=== PATIENT | male | born 1980 | race Caucasian/White ===

== ENCOUNTER 2016-11-09 22:19 | Emergency (ER) | payer OTHER ==
[2016-11-09 22:27] VITALS: RESP 18; TEMP 97.9
--- NOTE | 2016-11-09 22:54 | CPEKG ---
Heart Rate: 77 RR Interval: 779 P-R Interval: 160 QRSD Interval: 98 QT Interval: 384 QTC Interval: 435 P [place]: 36 QRS [place]: -2 T Wave [place]: 2 EKG Severity - NORMAL ECG - EKG Impression: SINUS RHYTHM Electronically Signed By: Marcell Irvin 10-Nov-2016 06:56:00
--- NOTE | 2016-11-09 23:32 | EDPHY ---
HPI/HX/ROS/PE/MDM Narrative: Chief complaint: Palpitations, belching, lightheadedness HPI: 36-year-old male with extensive history of anxiety who is currently weaning off the propranolol who was on the elliptical to gym earlier this evening when he began feeling increased palpitations, his head became thick. Any had increased fatigue. He continued his workup is symptoms persist so he stopped. The symptoms ended shortly after he got off and began to rest. He is also complaining of having episodes for the last week or so of feeling a increased pressure sensation in his upper abdomen with feeling like his heart skips a beat which is then followed by belching which relieves the symptoms. These each last up to 5-10 seconds at most. He has not have any exertional chest pain or dyspnea problem. No fevers or chills. He last took for panel wall couple days ago. He has not exercised since being off the propranolol which she has been on for several weeks. No recent illness. No fevers or chills. No nausea or vomiting. Does not smoke. Drinks rare alcohol, uses no recreational drugs. Does not have a family history of coronary artery disease. No recent travel. ROS: 10 point Review of Systems is negative except as noted in the HPI. Physical exam: Gen: Awake, Alert, no distress, anxious appearing HEENT: Nose: no rhinorrhea Eyes: PERRLA, EOMI Mouth: Moist mucosa Neck: Supple, no JVD Chest: nontender, lungs clear to auscultation Heart: S1, S2 normal, no murmur Abd: Soft, non-tender, no guarding Back: no CVA tenderness, no midline tenderness Ext: no edema, non-tender Skin: no rash Neuro: CN II-XII intact, Sensation grossly intact, Strength 5/5 in bilateral upper and lower extremities ED Course: EC sinus rhythm, rate of 77, normal axis, normal intervals, no acute ST or T-wave changes. Impression: Normal ECG. CBC, BMP, troponin are normal. Patient has had no further episodes in the emergency department. Symptoms are consistent likely with gastrointestinal and anxiety reaction. No evidence of acute coronary syndrome at this time. Will discharge with follow-up with PCP. - Data Points Laboratory Results: Laboratory Results 11/09/16 23:29 11/09/16 23:29 11/09/16 23:29 WBC 5.10 10^3/uL (3.80-9.50) RBC 5.19 10^6/uL (4.40-6.38) Hgb 17.1 g/dL (13.7-17.5) Hct 47.6 % (40.0-51.0) MCV 91.7 fL (81.5-99.8) MCH 32.9 pg (27.9-34.1) MCHC 35.9 g/dL (32.4-36.7) RDW 12.7 % (11.5-15.2) Plt Count 225 10^3/uL (150-400) MPV 10.8 fL (8.7-11.7) Neut % (Auto) 54.5 % (39.3-74.2) Lymph % (Auto) 34.5 % (15.0-45.0) [place] % (Auto) 9.6 % (4.5-13.0) Eos % (Auto) 0.8 % (0.6-7.6) Baso % (Auto) 0.4 % (0.3-1.7) Nucleat RBC Rel Count 0.0 % (0.0-0.2) Absolute Neuts (auto) 2.78 10^3/uL (1.70-6.50) Absolute Lymphs (auto) 1.76 10^3/uL (1.00-3.00) Absolute Monos (auto) 0.49 10^3/uL (0.30-0.80) Absolute Eos (auto) 0.04 10^3/uL (0.03-0.40) Absolute Basos (auto) 0.02 10^3/uL (0.02-0.10) Absolute Nucleated RBC 0.00 10^3/uL (0-0.01) Immature Gran % 0.2 % (0.0-1.1) Immature Gran # 0.01 10^3/uL (0.00-0.10) Sodium 146 H mEq/L (134-144) Potassium 3.5 mEq/L (3.5-5.2) Chloride 109 mEq/L (97-110) Carbon Dioxide 23 mEq/l (22-31) Anion Gap 14 mEq/L (8-16) BUN 7 mg/dL (7-23) Creatinine 1.2 mg/dL (0.7-1.3) Estimated GFR > 60 Glucose 96 mg/dL (70-100) Calcium 9.4 mg/dL (8.5-10.4) Troponin I < 0.012 ng/mL (0-0.034) General Time Seen by Provider: 11/09/16 22:56 Initial Vital Signs: Initial Vital Signs Temperature (C) 36.6 C 11/09/16 22:25 Heart Rate 99 11/09/16 22:25 Respiratory Rate 18 11/09/16 22:25 Blood Pressure 158/98 H 11/09/16 22:25 O2 Sat (%) 97 11/09/16 22:25 O2 Delivery Mode Room Air Allergies/Adverse Reactions: Cephalosporins Allergy (Verified 11/09/16 22:24) Penicillins Allergy (Verified 11/09/16 22:24) propranolol Allergy (Verified 11/09/16 22:24) Sulfa (Sulfonamide Antibiotics) Allergy (Verified 11/09/16 22:24) Home Medications: Medication Instructions Recorded Omeprazole 10/23/16 Departure - Departure Disposition: Home, Routine, Self-Care Clinical Impression: Palpitations Condition: Good Instructions: Palpitations (ED) Additional Instructions: Follow up with your primary care physician in 2-3 days for re-evaluation. Return to the emergency depart for any concerns.
[2016-11-09 23:49] LABS: % IMMATURE GRANULYOCYTES 0.2 % (0.0-1.1); ABSOLUTE IMMATURE GRANULOCYTES 0.01 10^3/uL (0.00-0.10); ADD DIFF? NO; ADD MORPH? NO; ADD SCAN? NO; ATYPICAL LYMPHOCYTE FLAG 0 (0-99); FRAGMENT RBC FLAG 0 (0-99); HEMATOCRIT 47.6 % (40.0-51.0); HEMOGLOBIN 17.1 g/dL (13.7-17.5); LEFT SHIFT FLG 0 (0-99); LIPEMIA HEMOLYSIS FLAG 90 (0-99); MEAN CELL HEMOGLOBIN 32.9 pg (27.9-34.1); MEAN CELL HEMOGLOBIN CONCENTR. 35.9 g/dL (32.4-36.7); MEAN CELL VOLUME 91.7 fL (81.5-99.8); MEAN PLATELET VOLUME 10.8 fL (8.7-11.7); PLATELET CLUMPS FLAG 10 (0-99); PLATELET COUNT 225 10^3/uL (150-400); RED BLOOD CELL COUNT 5.19 10^6/uL (4.40-6.38); RED CELL DISTRIBUTION WIDTH 12.7 % (11.5-15.2)
[2016-11-10 00:08] LABS: ANION GAP 14 mEq/L (8-16); CALCIUM 9.4 mg/dL (8.5-10.4); CARBON DIOXIDE 23 mEq/l (22-31); CHLORIDE 109 mEq/L (97-110); CREATININE 1.2 mg/dL (0.7-1.3); GLOMERULAR FILTRATION RATE > 60; GLUCOSE 96 mg/dL (70-100); POTASSIUM 3.5 mEq/L (3.5-5.2); SODIUM 146 mEq/L (134-144)
[2016-11-10 00:20] LABS: TROPONIN I < 0.012 ng/mL (0-0.034)
[2016-11-10 00:59] VITALS: BP 131/85; PULSE 90; O2SAT 98
== END 2016-11-10 00:58 | disposition home or self-care (01) ==
DX: R00.2 Palpitations (principal)

== ENCOUNTER 2016-11-19 15:21 | Emergency (ER) | payer OTHER ==
--- NOTE | 2016-11-19 15:49 | CPEKG ---
Heart Rate: 87 RR Interval: 690 P-R Interval: 156 QRSD Interval: 100 QT Interval: 384 QTC Interval: 462 P [place]: 41 QRS [place]: -11 T Wave [place]: 9 EKG Severity - NORMAL ECG - EKG Impression: SINUS RHYTHM Electronically Signed By: Genaro Jin 19-Nov-2016 19:46:24
[2016-11-19] MEDS ORDERED: NS 1,000 ML IV ONE (15:59)
--- NOTE | 2016-11-19 16:03 | EDPHY ---
H & P Stated Complaint: [place] like he was going to pass out while in [facility]. Time Seen by Provider: 11/19/16 15:55 - Personal History Current Tetanus Diphtheria and Acellular Pertussis (TDAP): Yes Tetanus Vaccine Date: 2011 - Medical/Surgical History Hx Asthma: No Hx Chronic Respiratory Disease: No Hx Diabetes: No Hx Cardiac Disease: No Hx Renal Disease: No Hx Cirrhosis: No Hx Alcoholism: No Hx HIV/AIDS: No Hx Splenectomy or Spleen Trauma: No Other PMH: PSHx: vasectomy 2011, R meniscus 2000, Gastritis. PMHx: anxiety - Social History Smoking Status: Never smoked Constitutional: Initial Vital Signs Temperature (C) 36.9 C 11/19/16 15:29 Heart Rate 95 11/19/16 15:29 Respiratory Rate 16 11/19/16 15:29 Blood Pressure 131/91 H 11/19/16 15:29 O2 Sat (%) 96 11/19/16 15:29 O2 Delivery Mode Room Air Allergies/Adverse Reactions: Cephalosporins Allergy (Verified 11/09/16 22:24) Penicillins Allergy (Verified 11/09/16 22:24) propranolol Allergy (Verified 11/09/16 22:24) Sulfa (Sulfonamide Antibiotics) Allergy (Verified 11/09/16 22:24) Home Medications: Medication Instructions Recorded Omeprazole 10/23/16 Medical Decision Making ED Course/Re-evaluation: CHIEF COMPLAINT: Lightheaded HISTORY OF PRESENT ILLNESS: The patient is a 36 year old male presenting with lightheadedness that started this afternoon. The patient was walking around [facility] and began to feel disoriented and lightheaded. He felt better and drove to work. When he arrived at work he thought he was going to have a syncopal episode. The patient has a history of anxiety, but feels like this is something different. He was able to sit down and began to feel better. He denies recent sickness. REVIEW OF SYSTEMS: A 10 point review of systems was performed and is negative with the exception of the elements mentioned in the history of present illness. PHYSICAL EXAM: HR, BP, O2 Sat, RR. Temp noted General Appearance: Alert, well hydrated, appropriate, and non-toxic appearing. Head: Atraumatic without scalp tenderness or obvious injury Eyes: Pupils equal, round, reactive to light and accommodation, EOMI, no trauma , no injection. Ears: Clear bilaterally, no perforation, normal landmarks Nose: Atraumatic, no rhinorrhea, clear. Throat: There is no erythema or exudates, no lesions, normal tonsils, mucus membranes moist. Neck: Supple, 2+ carotid upstroke, nontender, no lymphadenopathy. Respiratory: No retractions, no distress, no wheezes, and no accessory muscle use. Lungs are clear to auscultation bilaterally. Cardiovascular: Regular rate and rhythm, no murmurs, rubs, or gallops. Bilateral carotid, radial, dorsalis pedis, and posterior tibial pulses intact. Good capillary refill all extremities. Gastrointestinal: Abdomen is soft, nontender, non-distended, no masses, no rebound, no guarding, no peritoneal signs. Musculoskeletal: Normal active ROM of all extremities, atraumatic. Neurological: Alert, appropriate, and interactive. The patient has normal DTRs and non-focal cranial nerves, motor, sensory, and cerebellar exam. Skin: No rashes, good turgor, no nodules on palpation. Past medical history: Anxiety, Gastritis Past surgical history: Vasectomy Family history: Mother of heart attack Social history: . DIAGNOSTICS/PROCEDURES/CRITICAL CARE TIME: The 12 lead EKG was interpreted by myself. See hard copy and/or "tracemaster" electronic copy for interpretation: Normal sinus rhythm. DIFFERENTIAL DIAGNOSIS: The differential diagnosis for the patient's lightheadedness included but was not limited to vasovagal syncope, arrhythmia, dehydration, cardiogenic causes, neurogenic causes, and blood loss. MEDICAL DECISION MAKING: The patient is a 36 year old male here with lightheadedness that started today. The patient felt he was going to syncope, but did not. He came here for a cardiac evaluation. He had a normal cath in 2009 and 2013. EKG today is normal. Lab work up is normal. I believe this is anxiety related. The patient is now requesting a utox. He states he was exposed to an E-cig and believes it may have contained marijuana. - Data Points Laboratory Results: Laboratory Results 11/19/16 15:56 11/19/16 15:56 11/19/16 15:56 WBC 5.01 10^3/uL (3.80-9.50) RBC 5.25 10^6/uL (4.40-6.38) Hgb 17.2 g/dL (13.7-17.5) Hct 47.2 % (40.0-51.0) MCV 89.9 fL (81.5-99.8) MCH 32.8 pg (27.9-34.1) MCHC 36.4 g/dL (32.4-36.7) RDW 12.7 % (11.5-15.2) Plt Count 223 10^3/uL (150-400) MPV 10.5 fL (8.7-11.7) Neut % (Auto) 56.7 % (39.3-74.2) Lymph % (Auto) 31.7 % (15.0-45.0) [place] % (Auto) 10.2 % (4.5-13.0) Eos % (Auto) 0.6 % (0.6-7.6) Baso % (Auto) 0.6 % (0.3-1.7) Nucleat RBC Rel Count 0.0 % (0.0-0.2) Absolute Neuts (auto) 2.84 10^3/uL (1.70-6.50) Absolute Lymphs (auto) 1.59 10^3/uL (1.00-3.00) Absolute Monos (auto) 0.51 10^3/uL (0.30-0.80) Absolute Eos (auto) 0.03 10^3/uL (0.03-0.40) Absolute Basos (auto) 0.03 10^3/uL (0.02-0.10) Absolute Nucleated RBC 0.00 10^3/uL (0-0.01) Immature Gran % 0.2 % (0.0-1.1) Immature Gran # 0.01 10^3/uL (0.00-0.10) Sodium 143 mEq/L (134-144) Potassium 3.6 mEq/L (3.5-5.2) Chloride 110 mEq/L (97-110) Carbon Dioxide 21 L mEq/l (22-31) Anion Gap 12 mEq/L (8-16) BUN 9 mg/dL (7-23) Creatinine 1.1 mg/dL (0.7-1.3) Estimated GFR > 60 Glucose 96 mg/dL (70-100) Calcium 9.5 mg/dL (8.5-10.4) Total Bilirubin 2.1 H mg/dL (0.1-1.4) Conjugated Bilirubin 0.1 mg/dL (0.0-0.5) Unconjugated Bilirubin 2.0 H mg/dL (0.0-1.1) AST 21 IU/L (17-59) ALT 45 IU/L (21-72) Alkaline Phosphatase 96 IU/L (38-126) Troponin I < 0.012 ng/mL (0-0.034) Total Protein 7.3 g/dL (6.3-8.2) Albumin 4.3 g/dL (3.5-5.0) Lipase 134.0 IU/L (23-300) Medications Given: Discontinued Medications Sodium Chloride (Ns) 1,000 mls @ 0 mls/hr IV ONCE ONE PRN Reason: Wide Open Stop: 11/19/16 16:00 Last Admin: 11/19/16 16:11 Dose: 1,000 mls Departure - Departure Disposition: Home, Routine, Self-Care Clinical Impression: Anxiety Condition: Good Instructions: Anxiety (ED), Fatigue (ED) Additional Instructions: Followup with your primary care physician as needed. Referrals: IN STATE,. [Primary Care Provider] - As per Instructions Report Scribed for: Genaro Jin Report Scribed by: Veronica Greene Date of Report: 11/19/16 Time of Report: 16:14
[2016-11-19 16:05] LABS: % IMMATURE GRANULYOCYTES 0.2 % (0.0-1.1); ABSOLUTE IMMATURE GRANULOCYTES 0.01 10^3/uL (0.00-0.10); ADD DIFF? NO; ADD MORPH? NO; ADD SCAN? NO; ATYPICAL LYMPHOCYTE FLAG 0 (0-99); FRAGMENT RBC FLAG 0 (0-99); HEMATOCRIT 47.2 % (40.0-51.0); HEMOGLOBIN 17.2 g/dL (13.7-17.5); LEFT SHIFT FLG 0 (0-99); LIPEMIA HEMOLYSIS FLAG 90 (0-99); MEAN CELL HEMOGLOBIN 32.8 pg (27.9-34.1); MEAN CELL HEMOGLOBIN CONCENTR. 36.4 g/dL (32.4-36.7); MEAN CELL VOLUME 89.9 fL (81.5-99.8); MEAN PLATELET VOLUME 10.5 fL (8.7-11.7); PLATELET CLUMPS FLAG 0 (0-99); PLATELET COUNT 223 10^3/uL (150-400); RED BLOOD CELL COUNT 5.25 10^6/uL (4.40-6.38); RED CELL DISTRIBUTION WIDTH 12.7 % (11.5-15.2)
[2016-11-19 16:18] LABS: ALANINE AMINOTRANSFERASE 45 IU/L (21-72); ALBUMIN 4.3 g/dL (3.5-5.0); ALKALINE PHOSPHATASE 96 IU/L (38-126); ANION GAP 12 mEq/L (8-16); ASPARTATE AMINOTRANSFERASE 21 IU/L (17-59); BILIRUBIN,TOTAL 2.1 mg/dL (0.1-1.4); BILIRUBIN-CONJUGATED 0.1 mg/dL (0.0-0.5); CALCIUM 9.5 mg/dL (8.5-10.4); CARBON DIOXIDE 21 mEq/l (22-31); CHLORIDE 110 mEq/L (97-110); CREATININE 1.1 mg/dL (0.7-1.3); GLOMERULAR FILTRATION RATE > 60; GLUCOSE 96 mg/dL (70-100); POTASSIUM 3.6 mEq/L (3.5-5.2); SODIUM 143 mEq/L (134-144); TOTAL PROTEIN 7.3 g/dL (6.3-8.2)
[2016-11-19 18:04] VITALS: BP 123/78; PULSE 70; RESP 14; TEMP 97.9; O2SAT 94
== END 2016-11-19 18:03 | disposition home or self-care (01) ==
DX: F41.9 Anxiety disorder, unspecified (principal)
CPT/HCPCS: 80305